=== PATIENT | female | born 1995 | race Caucasian/White ===

== ENCOUNTER 2018-11-17 23:25 | Emergency (ER) | payer OTHER ==
[~2018-11-17] VITALS: Ht 157.5 cm; Wt 84.5 kg
[2018-11-17 23:31] VITALS: Ht 157.5 cm; Wt 84.5 kg
--- NOTE | 2018-11-18 03:01 | ERD ---
ER Documentation Chief Complaint Chief Complaint pelvic pain w/ fever symptoms this evening. no VB, denies HPI Patient is a 23 years old female with no known past medical history presenting to the clinic for pelvic pain, fever, urinary urgency since earlier today. She admits to taking Advil without resolution of symptoms. Patient patient reports she currently has an IUD placed for 2 years. Patient denies chills, night sweats, constipation, diarrhea, bloating, shortness of breath, chest pain, dysuria, nausea, emesis. ROS All systems reviewed and are negative except as per history of present illness. Allergies Allergies: Coded Allergies: No Known Allergy (Unverified , 11/17/18) PMhx/Soc History of Surgery: No Anesthesia Reaction: No Hx Neurological Disorder: No Hx Respiratory Disorders: No Hx Cardiac Disorders: No Hx Psychiatric Problems: No Hx Miscellaneous Medical Probl: No Hx Alcohol Use: No Hx Substance Use: No FmHx Family History: No diabetes, No coronary disease, No other Physical Exam Vitals Vital Signs Date Temp Pulse Resp B/P (MAP) Pulse Ox O2 O2 Flow FiO2 Time Delivery Rate 11/17/18 99.7 111 19 125/65 97 23:31 (85) Physical Exam Const: No acute distress Head: Atraumatic Eyes: Normal Conjunctiva Resp: Clear to auscultation bilaterally Cardio: Regular rate and rhythm, no murmurs Abd: Soft, non tender, non distended. Normal bowel sounds. Negative Joseph sign, Rovsing sign, McBurney's point tenderness, guarding, rebound tenderness. Skin: No petechiae or rashes Back: No midline or flank tenderness. Negative CVAT. Ext: No cyanosis, or edema Neur: Awake and alert Psych: Normal Mood and Affect Results 24 hrs Laboratory Tests Test 11/18/18 03:02 Urine Color YELLOW Urine Clarity SLIGHTLY CLOUDY Urine pH 8.0 Urine Specific [place] 1.024 Urine Ketones NEGATIVE mg/dL Urine Nitrite NEGATIVE mg/dL Urine Bilirubin NEGATIVE mg/dL Urine Urobilinogen NEGATIVE mg/dL Urine Leukocyte Esterase NEGATIVE Akshat/ul Urine Microscopic RBC 16 /HPF Urine Microscopic WBC 4 /HPF Urine Squamous Epithelial Cells FEW /HPF Urine Mucus FEW /HPF Urine Hemoglobin 1+ mg/dL Urine Glucose NEGATIVE mg/dL Urine Total Protein 1+ mg/dl Procedures/MDM Patient was seen and evaluated for mild pelvic pain and urinary urgency. Urinalysis revealed urine bacteria and mucous which is most consistent with UTI. Low suspicion of sepsis, ovarian torsion, PID, colitis, cholecystitis, appendicitis. She is stable ready for discharge. Follow-up with PCP. Patient will be discharged with Macrobid. Departure Diagnosis: Primary Impression: UTI (urinary tract infection) Urinary tract infection type: site unspecified Hematuria presence: without hematuria Qualified Codes: N39.0 - Urinary tract infection, site not specified Condition: Stable Patient Instructions: Understanding Urinary Tract Infections (UTIs) Referrals: [facility] Additional Instructions: Patient advised to return to the ED immediately for new or worsening symptoms. Patient advised to follow up with primary care provider in the next 24-48 hours. Patient verbalized understanding and agrees with treatment plan and course of action. If patient has no primary care they may follow up with [facility] + [facility] [address] [place] [id number] or [facility] [address] [place] [address] or [facility] [address] [place] [address] MALLORY GA PA-C Nov 18, 2018 03:01
[2018-11-18] MEDS ORDERED: NITR-58 PO (03:33)
[2018-11-18 03:42] VITALS: BP 122/68; PULSE 88; RESP 20
== END 2018-11-18 03:43 | disposition home or self-care (01) ==
LOC: FTE 23:25
DX: N39.0 Urinary tract infection, site not specified (principal)
CPT/HCPCS: 81001; Z7502; 99283